=== PATIENT | female | born 1975 | race Caucasian/White ===

== ENCOUNTER 2016-12-04 13:15 | Emergency (ER) | payer OTHER ==
--- NOTE | 2016-12-04 16:20 | ED NURSING NOTES ---
Clinical Report - Nurses [facility] [address] [place] [address] 12/04/2016 13:18 Patient: BITA BELTRAN TRIAGE Triage time 13:33 Dec 04 2016. Chief Complaint: BACK PAIN and (pt here on vacation, hx of back injury in 1997 from a fall, pt with 2 days of pain that has increased today with radiation now down right leg). Alert. SEPSIS SCREEN: Sepsis Screen. Negative (no infection suspected/documented). NICHOLAS COMA SCORE: Nicholas Coma Scale: 15- eyes open spontaneously (4); best verbal response- oriented x 4 (5); best motor response- obeys commands (6). --13:44 Elinor Crawford R.N. 13:33 12/04/16. BP: 162/95. HR: 121. RR: 19. O2 saturation: 97%. Temp: 97.6 F. Pain level now: 01/06. --13:44 Elinor Crawford R.N. Weight: 113.3 kg stated. Height/Length: 67 inches Per Patient. BMI: 39.2. --13:41 Elinor Crawford R.N. Medications Synthroid Oral. --13:36 Elinor Crawford R.N. Nortriptyline HCl Oral. --13:36 Elinor Crawford R.N. Cipro Oral. --13:37 Elinor Crawford R.N. Medication/allergy information source: the patient and patient's spouse. --13:44 Elinor Crawford R.N. Allergies None. --13:36 Elinor Crawford R.N. History Arrived by private vehicle. Historian: patient and family. Accompanied by family. Onset. (2 days ago). She has had trouble walking and extremity pain. No numbness, weakness or tingling. 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 PAST MEDICAL HX: Tetanus status: up-to-date. Immunizations: up-to-date. SOCIAL HX: Former smoker. Never smoker. No alcohol use or drug use. No infectious disease exposure. ABUSE ASSESSMENT: No report of abuse. SELF HARM ASSESSMENT: A self harm assessment was performed. The patient answered "no" to the question "Do you have thoughts of harming or killing yourself?". --13:44 Elinor Crawford R.N. PROBLEMS: Hypothyroidism. Asthma. --13:38 Elinor Crawford R.N. ADDITIONAL SURGERIES: Arm surgery. Gallbladder Surgery. Knee Surgery. Thyroid Surgery. --13:38 Elinor Crawford R.N. Interventions ID band on patient. --13:44 Elinor Crawford R.N. PHYSICAL ASSESSMENT To room via wheelchair. GENERAL / NEURO / PSYCH: Alert. Oriented X 4. Appears in pain. EXTREMITIES: Sensation intact in extremities. BACK: ( second to pain). Normal inspection of the neck and back. Limited ROM of the back. --13:44 Elinor Crawford R.N. NURSING PROGRESS NOTES Pulse oximeter and NIBP monitor placed on patient. Reassurance given. Patient identifiers checked. Call light placed in reach. Side rails up x 1. Bed placed in lowest position. Brakes of bed on. --13:45 Elinor Crawford R.N. 13:49 12/04/2016 Flexeril (Cyclobenzaprine HCl) PO 10 mg given. Allergies verified and confirmed 5 rights. --13:54 Elinor Crawford R.N. 13:49 12/04/2016 Percocet (Oxycodone-Acetaminophen) PO 5/325 mg Tablets 1 tab given. Allergies verified, confirmed 5 rights and sedative warning given to the patient and patient's family. --13:54 Elinor Crawford R.N. 13:49 12/04/2016 Toradol (Ketorolac Tromethamine) IM 60 mg given. Given in the right gluteus kristian. Allergies verified and confirmed 5 rights. --13:54 Elinor Crawford R.N. 14:33 12/04/2016 Percocet (Oxycodone-Acetaminophen) PO 5/325 mg Tablets 1 tab given. Allergies verified, confirmed 5 rights and sedative warning given to the patient and patient's family. --14:33 Elinor Crawford R.N. ( pt tearful, pts s/o assisted with moving her to a more comfortable position.). --14:34 Elinor Crawford R.N. 14:33 12/04/16. BP: 143/92. HR: 102. RR: 17. Pain level now 01/06. --14:34 Elinor Crawford R.N. ( pt cont to be tearful and report no change in pain with movement or attempt at bearing weight. MD asked to reevaluate). --15:12 Elinor Crawford R.N. 15:11 12/04/2016 Percocet PO Response: no adverse reaction symptoms are the same. The patient feels the same. --15:36 Elinor Crawford R.N. 15:11 12/04/2016 Toradol IM Response: no adverse reaction symptoms are the same. The patient feels the same. --15:36 Elinor Crawford R.N. 15:12 12/04/2016 Flexeril PO Response: no adverse reaction symptoms are the same. The patient feels the same. --15:37 Elinor Crawford R.N. 15:25 12/04/2016 Dilaudid (HYDROmorphone HCl PF) IM 2 mg given. Given in the right deltoid. Allergies verified, confirmed 5 rights and sedative warning given to the patient and patient's family. --15:35 Elinor Crawford R.N. 15:27 12/04/2016 Percocet PO Response: no adverse reaction symptoms are the same. The patient feels the same. --15:37 Elinor Crawford R.N. ( pt ambulated to bathroom with steady gait, reports "I'm so much better its just tomorrow I'm worried about flying home"). --16:12 Elinor Crawford R.N. 16:11 12/04/16. BP: 139/89. HR: 94. RR: 17. O2 saturation: 98%. Pain level now: 09/06. --16:12 Elinor Crawford R.N. Patient waiting for disposition. --16:12 Elinor Crawford R.N. DISPOSITION / DISCHARGE Condition at departure: improved. No learning barriers present. Discharge instructions provided and reviewed with the patient, spouse and family. Reviewed medication(s) side effects, precautions, dosing and course information. Prescription(s) given to the patient. Patient and spouse verbalized understanding. Written instructions provided in Faroese. The patient was discharged by the physician. She was discharged home and accompanied by spouse. She left the Emergency Department ambulatory and via private vehicle. Spouse driving. ( pt dc home, ambulatory to lobby without assist, pain 09/06, "so much better than before"). --16:34 Elinor Crawford R.N. 16:33 12/04/16. BP: 133/84. HR: 88. RR: 16. O2 saturation: 99%. Temp: deferred. Pain level now: 09/06. --16:34 Elinor Crawford R.N. Locked/Released at 12/04/2016 17:45 by Elinor Crawford R.N.
--- NOTE | 2016-12-04 16:20 | ED CLINICAL REPORT ---
Clinical Report - Physicians/Mid Levels [facility] [address] [place] [place] [address] 12/04/2016 13:18 Patient: BITA BELTRAN Time Seen: 1333. Arrived- By private vehicle. Historian- patient. HISTORY OF PRESENT ILLNESS Chief Complaint: BACK PAIN. Modifying factors. (worse with movement. better with rest.). Onset was today and it is still present and worsening. It was abrupt in onset and has been constant but is not gone now. It is described as being severe and in the area of the right lower lumbar spine and radiating (right posterior thigh). The quality is noted to be sharp and aching. Bladder dysfunction. Bowel dysfunction. Sensory loss. Motor loss. Additional history - no fever. no saddle anesthesia. no urinary retention. had an old back injury years ago. Patient denies an injury but injury to the head or neck. No other injury. Similar symptoms previously: (a few times ago.). Recent medical care: Not recently seen/assessed. REVIEW OF SYSTEMS No fever, headache, cough, difficulty breathing or chest pain. No abdominal pain. All systems otherwise negative, except as recorded above. PAST HISTORY See nurses notes. Medications: Cipro Oral. Nortriptyline HCl Oral. Synthroid Oral. Allergies: None. SOCIAL HISTORY Former smoker. No alcohol use or drug use. Recent travel- (from [place]). Is an out of state resident. PHYSICAL EXAM Appearance: Alert. Patient in mild distress. (non-toxic. pleasant. cooperative.). HEENT: Normal external inspection. Eyes: Pupils equal, round and reactive to light. ENT: Ears normal. Pharynx normal. Neck: Normal inspection. Neck nontender. Painless ROM. CVS: Heart sounds normal. Pulses normal. Respiratory: No respiratory distress. Breath sounds normal. Abdomen: No visible injury. Soft and nontender. Bowel sounds normal. No mass. Back: Normal inspection. No vertebral point tenderness. (right lumbar paraspinal muscle tenderness. no crepitus. no midline tenderness.). Skin: Skin warm and dry. Normal skin color. No rash. Normal skin turgor. Extremities: Extremities exhibit normal ROM. Extremities nontender. Neuro: Oriented X 3. Mood/affect normal. No motor deficit. No sensory deficit. PROGRESS AND PROCEDURES Course of Care: the patient is a 41-year-old female with a history of chronic back pain presenting for evaluation of acute exacerbation of her right lower back pain. No concern for cord compromise at this time. No "red flags." Pain medication as been provided. Patient is agreeable to the treatment and plan. Patient required several doses of pain medication while here in the emergency department. Patient continued to appear more more comfortable after each dose pain medication as been provided. Patient was given Dilaudid intramuscular. That seemed to help significantly. Patient is able to ambulate and use the restroom independently. Patient continues to be steady on her feet. No signs of cord compromise on reevaluation. Repeat examination continues to be reassuring. Disposition: Discharged. Condition: good. CLINICAL IMPRESSION Acute nontraumatic lumbar back pain. INSTRUCTIONS Warnings: SEDATIVE MEDICATION: You were given sedative medication during your visit. Do not drive or operate dangerous machinery. CONTROLLED SUBSTANCE WARNINGS. GENERAL WARNINGS: Return or contact your physician immediately if your condition worsens or changes unexpectedly, if not improving as expected, or if other problems arise. SPECIFICALLY, return if you develop weakness, numbness, tingling, pain or incontinence. fever, abnormal behavior, or other concerns. Prescription Medications: Flexeril 10 mg: take 1 orally every 8 hours as needed for muscle spasm or pain. Dispense ten (10). No refills. Substitution is permissible. morphine sulfate 15 mg IR tablet. Take one tab as needed for pain every 6 hours as needed. Disp 6 tabs. No refills. substitution allowed. (Electronically signed by Tano Hoover Dr. 12/07/2016 5:37)
--- NOTE | 2016-12-04 16:20 | ED ORDER SUMMARY ---
..... Patient: BITA BELTRAN OrderSheet [facility] VisitID: [id number] [place] [address] 41y, F Registration Date/Time: 12/04/2016 ORDER SHEET Weight: 113.3 kg (stated) Allergies: None GENERAL ORDERS: MEDICATION ORDERS: Flexeril PO 10 mg (NOW) (13:41 12/04/2016 Brigitte Gambino) (Ack 13:45 KPage-Kuchan R.N.) (13:54 KPage-Kuchan R.N.) Percocet PO 5/325 mg (HIGH ALERT MEDICATION, NOW) (13:42 12/04/2016 Brigitte Gambino) (Ack 13:45 KPage-Kuchan R.N.) (13:54 KPage-Kuchan R.N.) Toradol IM 60 mg (NOW) (13:42 12/04/2016 Brigitte Gambino) (Ack 13:45 KPage-Kuchan R.N.) (13:54 KPage-Kuchan R.N.) Percocet PO 5/325 mg (HIGH ALERT MEDICATION, NOW) (14:27 12/04/2016 Brigitte Gambino) (Ack 14:27 KPage-Kuchan R.N.) (14:33 KPage-Kuchan R.N.) Dilaudid IM 2 mg (HIGH ALERT MEDICATION, NOW) (15:14 12/04/2016 Brigitte Gambino) (Ack 15:16 KPage-Kuchan R.N.) (15:35 KPage-Kuchan R.N.) IV FLUIDS: ORDER SHEET NOTES: [Electronically signed by Elinor Crawford R.N. (17:45 12/04/2016)] [Electronically signed by Tano Hoover Dr. (05:37 12/07/2016)] [Electronically locked/signed by Elinor Crawford R.N. (17:45 12/04/2016)]
--- NOTE | 2016-12-04 16:20 | ED ORDER SUMMARY ---
..... Patient: BITA BELTRAN OrderSheet [facility] VisitID: [id number] [place] [address] 41y, F Registration Date/Time: 12/04/2016 ORDER SHEET Weight: 113.3 kg (stated) Allergies: None GENERAL ORDERS: MEDICATION ORDERS: Flexeril PO 10 mg (NOW) (13:41 12/04/2016 Brigitte Gambino) (Ack 13:45 KPage-Kuchan R.N.) (13:54 KPage-Kuchan R.N.) Percocet PO 5/325 mg (HIGH ALERT MEDICATION, NOW) (13:42 12/04/2016 Brigitte Gambino) (Ack 13:45 KPage-Kuchan R.N.) (13:54 KPage-Kuchan R.N.) Toradol IM 60 mg (NOW) (13:42 12/04/2016 Brigitte Gambino) (Ack 13:45 KPage-Kuchan R.N.) (13:54 KPage-Kuchan R.N.) Percocet PO 5/325 mg (HIGH ALERT MEDICATION, NOW) (14:27 12/04/2016 Brigitte Gambino) (Ack 14:27 KPage-Kuchan R.N.) (14:33 KPage-Kuchan R.N.) Dilaudid IM 2 mg (HIGH ALERT MEDICATION, NOW) (15:14 12/04/2016 Brigitte Gambino) (Ack 15:16 KPage-Kuchan R.N.) (15:35 KPage-Kuchan R.N.) IV FLUIDS: ORDER SHEET NOTES: [Electronically signed by Elinor Crawford R.N. (17:45 12/04/2016)] [Electronically signed by Tano Hoover Dr. (05:37 12/07/2016)] [Electronically locked/signed by Elinor Crawford R.N. (17:45 12/04/2016)]
--- NOTE | 2016-12-07 05:37 | ED MED RECONCILIATION SUMMARY ---
Patient: BITA BELTRAN Medication Reconciliation Report [facility] VisitID: [id number] [place] [address] 41y, F Registration Date/Time: 12/04/2016 Weight: 113.3 kg Height/Length: 67 in. BMI: 39.2 ALLERGIES: None The patient's Home Medications are listed below: THE FOLLOWING MEDICATIONS NEED TO BE RECONCILED: Cipro Oral Nortriptyline HCl Oral Synthroid Oral The source(s) of the original Home Medication information: patient patient's spouse The following Medications were given to the patient in the Emergency Department: Flexeril [PO] PO 10 mg, administered: 12/04/2016 1:49:00 PM Percocet [PO] PO 1 tab, administered: 12/04/2016 1:49:00 PM Toradol [IM] IM 60 mg, administered: 12/04/2016 1:49:00 PM Percocet [PO] PO 1 tab, administered: 12/04/2016 2:33:00 PM Dilaudid [IM] IM 2 mg, administered: 12/04/2016 3:25:00 PM The following Medications were prescribed to the patient: morphine sulfate 15 mg IR tablet. Take one tab as needed for pain every 6 hours as needed. Disp 6 tabs. No refills. substitution allowed. -- Tano Hoover Dr. Flexeril 10 mg: take 1 orally every 8 hours as needed for muscle spasm or pain. Dispense ten (10). No refills. Substitution is permissible. -- Tano Hoover Dr.
--- NOTE | 2016-12-07 05:37 | ED MAR SUMMARY ---
..... Medication Administration Record [facility] [address] [place] [address] Patient: BITA BELTRAN Visit ID: [id number] 41y, F Weight: 113.3 kg Height/Length: 67 in BMI: 39.2 ALLERGIES: None Given 13:49 12/04/2016 Elinor Crawford R.N. Medication Administered: FLEXERIL [PO] (CYCLOBENZAPRINE HCL), Dose: 10 mg PO. Medication Ordered: Flexeril PO 10 mg (NOW). Given 13:12/04/2016 Elinor Crawford R.N. Medication Administered: PERCOCET [PO] (OXYCODONE-ACETAMINOPHEN), Dose: 1 tab 5/325 mg Tablets PO. Medication Ordered: Percocet PO 5/325 mg (HIGH ALERT MEDICATION, NOW). Given 13:12/04/2016 Elinor Crawford R.N. Medication Administered: TORADOL [IM] (KETOROLAC TROMETHAMINE), Dose: 60 mg IM. Medication Ordered: Toradol IM 60 mg (NOW). Given 14:33 12/04/2016 Elinor Crawford R.N. Medication Administered: PERCOCET [PO] (OXYCODONE-ACETAMINOPHEN), Dose: 1 tab 5/325 mg Tablets PO. Medication Ordered: Percocet PO 5/325 mg (HIGH ALERT MEDICATION, NOW). Given 15:25 12/04/2016 Elinor Crawford R.N. Medication Administered: DILAUDID [IM] (HYDROMORPHONE HCL PF), Dose: 2 mg IM. Medication Ordered: Dilaudid IM 2 mg (HIGH ALERT MEDICATION, NOW).
--- NOTE | 2016-12-07 05:37 | ED DISCHARGE INSTRUCTIONS ---
Patient: BITA BELTRAN General Instructions [facility] VisitID: [id number] [place] [address] 41y, F Registration Date/Time: 12/04/2016 Acute nontraumatic lumbar back pain. INSTRUCTIONS Warnings: SEDATIVE MEDICATION: You were given sedative medication during your visit. Do not drive or operate dangerous machinery. CONTROLLED SUBSTANCE WARNINGS. GENERAL WARNINGS: Return or contact your physician immediately if your condition worsens or changes unexpectedly, if not improving as expected, or if other problems arise. SPECIFICALLY, return if you develop weakness, numbness, tingling, pain or incontinence. fever, abnormal behavior, or other concerns. Prescription Medications: Flexeril 10 mg: take 1 orally every 8 hours as needed for muscle spasm or pain. Dispense ten (10). No refills. Substitution is permissible. morphine sulfate 15 mg IR tablet. Take one tab as needed for pain every 6 hours as needed. Disp 6 tabs. No refills. substitution allowed. ADDITIONAL INFORMATION Back Pain [Acute Or Chronic] Back pain is usually caused by an injury to the muscles or ligaments of the spine. Sometimes the disks that separate each bone in the spine may bulge and cause pain by pressing on a nearby nerve. Back pain may also appear after a sudden twisting/bending force (such as in a car accident), after a simple awkward movement, or lifting something heavy with poor body positioning. In either case, muscle spasm is often present and adds to the pain. Acute back pain usually gets better in one to two weeks. Back pain related to disk disease, arthritis in the spinal joints or spinal stenosis (narrowing of the spinal canal) can become chronic and last for months or years. Unless you had a physical injury (for example, a car accident or fall) X-rays are usually not ordered for the initial evaluation of back pain. If pain continues and does not respond to medical treatment, x-rays and other tests may be performed at a later time. Home Care: You may need to stay in bed the first few days. But, as soon as possible, begin sitting or walking to avoid problems with prolonged bed rest (muscle weakness, worsening back stiffness and pain, blood clots in the legs). When in bed, try to find a position of comfort. A firm mattress is best. Try lying flat on your back with pillows under your knees. You can also try lying on your side with your knees bent up towards your chest and a pillow between your knees. Avoid prolonged sitting. This puts more stress on the lower back than standing or walking. During the first two days after injury, apply an ICE PACK to the painful area for 20 minutes every 2-4 hours. This will reduce swelling and pain. HEAT (hot shower, hot bath or heating pad) works well for muscle spasm. You can start with ice, then switch to heat after two days. Some patients feel best alternating ice and heat treatments. Use the one method that feels the best to you. You may use acetaminophen (Tylenol) or ibuprofen (Motrin, Advil) to control pain, unless another pain medicine was prescribed. [NOTE: If you have chronic liver or kidney disease or ever had a stomach ulcer or GI bleeding, talk with your doctor before using these medicines.] Be aware of safe lifting methods and do not lift anything over 15 pounds until all the pain is gone. Follow Up with your doctor or this facility if your symptoms do not start to improve after one week. Physical therapy may be needed. [NOTE: If X-rays were taken, they will be reviewed by a radiologist. You will be notified of any new findings that may affect your care.] Get Prompt Medical Attention if any of the following occur: Pain becomes worse or spreads to your legs Weakness or numbness in one or both legs Loss of bowel or bladder control Numbness in the groin or genital area Cyclobenzaprine Hydrochloride Oral tablet What is this medicine? CYCLOBENZAPRINE (samuel jackson) is a muscle relaxer. It is used to treat muscle pain, spasms, and stiffness. How should I use this medicine? Take this medicine by mouth with a glass of water. Follow the directions on the prescription label. If this medicine upsets your stomach, take it with food or milk. Take your medicine at regular intervals. Do not take it more often than directed. Talk to your airline lounge receptionist regarding the use of this medicine in children. Special care may be needed. What side effects may I notice from receiving this medicine? Side effects that you should report to your doctor or health career development consultant as soon as possible: allergic reactions like skin rash, itching or hives, swelling of the face, lips, or tongue chest pain fast heartbeat hallucinations seizures vomiting Side effects that usually do not require medical attention (report to your doctor or health career development consultant if they continue or are bothersome): headache What may interact with this medicine? Do not take this medicine with any of the following medications: cisapride droperidol flecainide grepafloxacin halofantrine levomethadyl MAOIs like Carbex, Eldepryl, Marplan, Nardil, and Parnate nilotinib pimozide probucol sertindole This medicine may also interact with the following medications: abarelix alcohol contrast dyes dolasetron guanethidine medicines for cancer medicines for depression, anxiety, or psychotic disturbances medicines to treat an irregular heartbeat medicines used for sleep or numbness during surgery or procedure methadone octreotide ondansetron palonosetron phenothiazines like chlorpromazine, mesoridazine, prochlorperazine, thioridazine some medicines for infection like alfuzosin, chloroquine, clarithromycin, levofloxacin, mefloquine, pentamidine, troleandomycin tramadol vardenafil What if I miss a dose? If you miss a dose, take it as soon as you can. If it is almost time for your next dose, take only that dose. Do not take double or extra doses. Where should I keep my medicine? Keep out of the reach of children. Store at room temperature between 15 and 30 degrees C (59 and 86 degrees F). Keep container tightly closed. Throw away any unused medicine after the expiration date. What should I tell my health care provider before I take this medicine? They need to know if you have any of these conditions: heart disease, irregular heartbeat, or previous heart attack liver disease thyroid problem an unusual or allergic reaction to cyclobenzaprine, tricyclic antidepressants, lactose, other medicines, foods, dyes, or preservatives or trying to get breast-feeding What should I watch for while using this medicine? Check with your doctor or health career development consultant if your condition does not improve within 1 to 3 weeks. You may get drowsy or dizzy when you first start taking the medicine or change doses. Do not drive, use machinery, or do anything that may be dangerous until you know how the medicine affects you. Stand or sit up slowly. Your mouth may get dry. Drinking water, chewing sugarless gum, or sucking on hard candy may help. You have been given the following additional information: Back Pain (Acute Or Chronic) Cyclobenzaprine Hydrochloride Oral tablet (Electronically signed by Tano Hoover Dr. 12/07/2016 5:37)
--- NOTE | 2016-12-07 05:37 | ED MAR SUMMARY ---
..... Medication Administration Record [facility] [address] [place] [address] Patient: BITA BELTRAN Visit ID: [id number] 41y, F Weight: 113.3 kg Height/Length: 67 in BMI: 39.2 ALLERGIES: None Given 13:49 12/04/2016 Elinor Crawford R.N. Medication Administered: FLEXERIL [PO] (CYCLOBENZAPRINE HCL), Dose: 10 mg PO. Medication Ordered: Flexeril PO 10 mg (NOW). Given 13:12/04/2016 Elinor Crawford R.N. Medication Administered: PERCOCET [PO] (OXYCODONE-ACETAMINOPHEN), Dose: 1 tab 5/325 mg Tablets PO. Medication Ordered: Percocet PO 5/325 mg (HIGH ALERT MEDICATION, NOW). Given 13:12/04/2016 Elinor Crawford R.N. Medication Administered: TORADOL [IM] (KETOROLAC TROMETHAMINE), Dose: 60 mg IM. Medication Ordered: Toradol IM 60 mg (NOW). Given 14:33 12/04/2016 Elinor Crawford R.N. Medication Administered: PERCOCET [PO] (OXYCODONE-ACETAMINOPHEN), Dose: 1 tab 5/325 mg Tablets PO. Medication Ordered: Percocet PO 5/325 mg (HIGH ALERT MEDICATION, NOW). Given 15:25 12/04/2016 Elinor Crawford R.N. Medication Administered: DILAUDID [IM] (HYDROMORPHONE HCL PF), Dose: 2 mg IM. Medication Ordered: Dilaudid IM 2 mg (HIGH ALERT MEDICATION, NOW).
--- NOTE | 2016-12-07 05:37 | ED MED RECONCILIATION SUMMARY ---
Patient: BITA BELTRAN Medication Reconciliation Report [facility] VisitID: [id number] [place] [address] 41y, F Registration Date/Time: 12/04/2016 Weight: 113.3 kg Height/Length: 67 in. BMI: 39.2 ALLERGIES: None The patient's Home Medications are listed below: THE FOLLOWING MEDICATIONS NEED TO BE RECONCILED: Cipro Oral Nortriptyline HCl Oral Synthroid Oral The source(s) of the original Home Medication information: patient patient's spouse The following Medications were given to the patient in the Emergency Department: Flexeril [PO] PO 10 mg, administered: 12/04/2016 1:49:00 PM Percocet [PO] PO 1 tab, administered: 12/04/2016 1:49:00 PM Toradol [IM] IM 60 mg, administered: 12/04/2016 1:49:00 PM Percocet [PO] PO 1 tab, administered: 12/04/2016 2:33:00 PM Dilaudid [IM] IM 2 mg, administered: 12/04/2016 3:25:00 PM The following Medications were prescribed to the patient: morphine sulfate 15 mg IR tablet. Take one tab as needed for pain every 6 hours as needed. Disp 6 tabs. No refills. substitution allowed. -- Tano [address] Dr. Flexeril 10 mg: take 1 orally every 8 hours as needed for muscle spasm or pain. Dispense ten (10). No refills. Substitution is permissible. -- Tano [address] Dr[address]
== END 2016-12-04 17:45 | disposition home or self-care (01) ==
LOC: ED SRH 13:15
DX: M54.5 Low back pain (principal); E03.9 Hypothyroidism, unspecified; Z79.2 Long term (current) use of antibiotics; Z79.899 Other long term (current) drug therapy; Z87.891 Personal history of nicotine dependence